=== PATIENT | male | born 1990 | race Caucasian/White ===

== ENCOUNTER 2021-01-05 12:11 | Emergency (ER) | payer BC, SELFPAY ==
--- NOTE | 2021-01-05 13:33 | EDPHYS ---
Physician Documentation [facility] Name: Barrera Scruggs Age: 30 yrs Sex: Male : 1990 Arrival Date: 01/05/2021 Time: 12:13 Bed 9 Private MD: ED Physician Ray Oliver HPI: 01/05 13:25 This 30 yrs old Male presents to ER via Ambulatory with complaints of Foreign pm1 Body In Ear. 13:25 The patient presents with a foreign body sensation, from Ear bud foam piece, pain. The pm1 complaints affect the left ear. Onset: The symptoms/episode began/occurred today. Modifying factors: The symptoms are alleviated by nothing, the symptoms are aggravated by Attempt by father to remove earpiece with tweezers and trimming of ear hair with scissors. Associated signs and symptoms: The patient has no apparent associated signs or symptoms. Severity of symptoms: in the emergency department the symptoms are worse. The patient has not experienced similar symptoms in the past. The patient has not recently seen a physician. Patient apparently got pediatric earbud piece inside left ear. Patient went to his father for assistance who then attempted to remove the foreign body with tweezers and was also cutting the your hair with a scissor. Patient reports some bleeding and pain with attempt by father for foreign body removal. Historical: - Allergies: 12:47 NKDA; ll1 - PMHx: 12:47 Ulcers; ll1 - PSHx: 12:47 Tonsillectomy; Adenoid excision; ll1 - Immunization history:: Client reports having NOT received the Covid vaccine. - Social history:: Smoking status: Patient denies any tobacco usage or history of. ROS: 13:25 Constitutional: Negative for fever, chills, and weight loss. pm1 13:25 Cardiovascular: Negative for chest pain, palpitations, and edema, Respiratory: Negative for shortness of breath, cough, wheezing, and pleuritic chest pain, MS/Extremity: Negative for injury and deformity, Skin: Negative for injury, rash, and discoloration. 13:25 Neuro: Negative for headache, weakness, numbness, tingling, and seizure. 13:25 ENT: Positive for foreign body sensation, Left ear. 13:25 All other systems are negative. Exam: 13:25 Constitutional: This is a well developed, well nourished patient who is awake, alert, pm1 and in no acute distress. Head/Face: Normocephalic, atraumatic. 13:25 Skin: Warm, dry with normal turgor. Normal color with no rashes, no lesions, and no evidence of cellulitis. MS/ Extremity: Pulses equal, no cyanosis. Neurovascular intact. Full, normal range of motion. 13:25 ENT: Ear canal(s): foreign body, Dark cobb rubber piece from ear bud, Abrasions and dried blood at 6-7 o'clock, Examination of the other ear shows no obvious abnormality. 13:25 Cardiovascular: Exam negative for acute changes, Rate: normal, Rhythm: regular, Pulses: no pulse deficits are appreciated. 13:25 Respiratory: Exam negative for acute changes, respiratory distress, shortness of breath. 13:25 Neuro: Exam negative for acute changes, Orientation: is normal, Mentation: is normal, Motor: is normal, moves all fours. Vital Signs: 12:46 BP 130 / 96; Pulse 52; Resp 18; Temp 97.9; Pulse Ox 98% ; Weight 99.79 kg; Height 6 ft. ll1 0 in. (182.88 cm); Pain 9/10; 13:40 BP 125 / 104; Pulse 54; Resp 17; Pulse Ox 99% ; Pain 3/10; ll1 12:46 Body Mass Index 29.84 (99.79 kg, 182.88 cm) ll1 MDM: 12:46 Patient medically screened. pm1 13:16 Physician consultation: Nanda Perry MD was called at 13:16, was contacted at 13:16, pm1 regarding consult, patient's condition, and will see patient in office, tomorrow. 13:26 ED course: discussed additional option for removal recommended by Dr. Oliver and the pm1 patient refused. Patient reports that he is comfortable at the moment and would prefer to wait to see the ENT tomorrow. 13:30 Data reviewed: vital signs. Data interpreted: Pulse oximetry: on room air is 98 %. pm1 Interpretation: normal. Counseling: I had a detailed discussion with the patient and/or guardian regarding: the historical points, exam findings, and any diagnostic results supporting the discharge/admit diagnosis, the need for outpatient follow up, for definitive care, an ENT specialist, to return to the emergency department if symptoms worsen or persist or if there are any questions or concerns that arise at home. 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 pm1 Administered Medications: 13:25 Drug: morphine 4 mg Route: IM; Site: left deltoid; iw 13:40 Follow up: Response: No adverse reaction; Pain is decreased; RASS: Alert and Calm (0) ll1 13:25 Drug: Zofran (Ondansetron) 4 mg Route: PO; iw 13:40 Follow up: Response: No adverse reaction ll1 Disposition: 01/06 10:29 Co-signature as Attending Physician, Ray Oliver MD I agree with the assessment and chi plan of care. Disposition Summary: 01/05/21 13:32 Discharge Ordered Location: Home pm1 Problem: new pm1 Symptoms: have improved pm1 Condition: Stable pm1 Diagnosis - Foreign body in left ear pm1 Followup: pm1 - With: Emergency Department - When: As needed - Reason: Worsening of condition Followup: pm1 - With: Nanda Perry MD - When: Tomorrow - Reason: Recheck today's complaints, Continuance of care, Re-evaluation by your physician Discharge Instructions: - Discharge Summary Sheet pm1 - Ear Foreign Body pm1 Forms: - Medication Reconciliation Form pm1 - Thank You Letter pm1 - Antibiotic Education pm1 - Prescription Opioid Use pm1 Prescriptions: - acetaminophen-codeine 300-15 mg Oral tablet - take 2 tablet by ORAL route every 6 hours As needed as needed; 6 tablet; pm1 Refills: 0, Product Selection Permitted Signatures: Ray Oliver MD MD cha Williams, Irene, RN Herb Andres NP BLASTING CAP ASSEMBLER pm1 Judi Nguyen RN RN ll1
--- NOTE | 2021-01-05 13:33 | ER ---
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 Coronavirus screen: Vaccine status: Client denies travel out of the [place] in the last 14 days. At this time, the client does not indicate any symptoms associated with coronavirus-19. Ebola Screen: Patient denies travel to an Ebola-affected area in the 21 days before illness onset. Initial Sepsis Screen: Does the patient meet any 2 criteria? No. Patient's initial sepsis screen is negative. Does the patient have a suspected source of infection? No. Patient's initial sepsis screen is negative. Risk Assessment: Do you want to hurt yourself or someone else? Patient reports no desire to harm self or others. Onset of symptoms was January 05, 2021. 12:46 Method Of Arrival: Ambulatory ll1 12:46 Acuity: ERIC 4 ll1 Triage Assessment: 12:47 General: Appears in no apparent distress. Behavior is calm, cooperative, appropriate ll1 for age. Pain: Complains of pain in left ear Quality of pain is described as aching. EENT: Reports foreign body L ear. Historical: - Allergies: 12:47 NKDA; ll1 - PMHx: 12:47 Ulcers; ll1 - PSHx: 12:47 Tonsillectomy; Adenoid excision; ll1 - Immunization history:: Client reports having NOT received the Covid vaccine. - Social history:: Smoking status: Patient denies any tobacco usage or history of. Screenin:36 Abuse screen: Denies threats or abuse. Denies injuries from another. Nutritional iw screening: No deficits noted. Tuberculosis screening: No symptoms or risk factors identified. Fall Risk None identified. Assessment: 13:10 General: Appears in no apparent distress. Behavior is calm, cooperative. Pain: iw Complains of pain in left ear. Neuro: Level of Consciousness is awake, alert, obeys commands, Oriented to person, place, time, situation, Moves all extremities. Cardiovascular: Patient's skin is warm and dry. Respiratory: Respiratory effort is even, unlabored. Derm: Skin is intact, is healthy with good turgor. Musculoskeletal: Range of motion: intact in all extremities. 13:41 Reassessment: No changes from previously documented assessment. Patient and/or family ll1 updated on plan of care and expected duration. Pain level reassessed. Patient is alert, oriented x 3, equal unlabored respirations, skin warm/dry/pink. Vital Signs: 12:46 BP 130 / 96; Pulse 52; Resp 18; Temp 97.9; Pulse Ox 98% ; Weight 99.79 kg; Height 6 ft. ll1 0 in. (182.88 cm); Pain 9/10; 13:40 BP 125 / 104; Pulse 54; Resp 17; Pulse Ox 99% ; Pain 3/10; ll1 12:46 Body Mass Index 29.84 (99.79 kg, 182.88 cm) ll1 ED Course: 12:13 Patient arrived in ED. ds1 12:46 Herb Chong NP is PHCP. pm1 12:46 Ray Oliver MD is Attending Physician. pm1 12:47 Triage completed. ll1 12:47 Arm band placed on Patient placed in an exam room, on a stretcher. ll1 13:31 Nanda Perry MD is Referral Physician. pm1 13:35 Melissa Vásquez, MIRACLE is Primary Nurse. iw 13:36 Assist provider with foreign body removal of ear bud from left ear canal. Performed by iw Herb Chong NP unsuccessful, pt will follow up with ENT tomorrow. Patient did not have IV access during this emergency room visit. 13:41 Patient has correct armband on for positive identification. Bed in low position. Call ll1 light in reach. Side rails up X 1. Cardiac monitoring not applicable on this patient. Administered Medications: 13:25 Drug: morphine 4 mg Route: IM; Site: left deltoid; iw 13:40 Follow up: Response: No adverse reaction; Pain is decreased; RASS: Alert and Calm (0) ll1 13:25 Drug: Zofran (Ondansetron) 4 mg Route: PO; iw 13:40 Follow up: Response: No adverse reaction ll1 Outcome: 13:32 Discharge ordered by . pm1 13:41 Discharged to home ambulatory. ll1 13:41 Condition: stable 13:41 Discharge instructions given to patient, Instructed on discharge instructions, follow up and referral plans. no drinking with medication, no driving heavy equipment, medication usage, Demonstrated understanding of instructions, follow-up care, medications, Prescriptions given X 1. 13:41 Patient left the ED. ll1 Signatures: Ca Cortes ds1 Melissa Vásquez RN RN iw Herb Chong NP HELPER MARBLE FINISHER pm1 Judi Nguyen RN RN ll1
[2021-01-05 13:46] VITALS: TEMP 97.9
[2021-01-05] MEDS ORDERED: MORPHINE 4 MG/ML SYR ONE (13:46)
[2021-01-05] MEDS ORDERED: ONDANSETRON 4 MG (ODT) TAB ONE (13:46)
[2021-01-05 13:47] VITALS: BP 125/104; O2SAT 99
== END 2021-01-05 13:41 | disposition home or self-care (01) ==
LOC: ER 12:11
DX: T16.2XXA Foreign body in left ear, initial encounter (principal); X58.XXXA Exposure to other specified factors, initial encounter
CPT/HCPCS: 96372; 99283